=== PATIENT | male | born 1950 | race Caucasian/White ===

== ENCOUNTER 2020-03-17 08:03 | Day surgery (SDC) | payer MEDICARE, OTHER, SELFPAY ==
--- NOTE | 2020-03-16 18:16 | W.PM.HP.N ---
Date of service: 03/17/20 Assessment and Plan Assessment and plan (1) Cortical cataract of right eye: Status: Acute Assessment and plan: Cataract extraction with intraocular lens implant, left eye (2) Cortical cataract of left eye: Status: Acute (3) Nuclear sclerotic cataract of right eye: Status: Acute Assessment and plan: Cataract extraction with intraocular lens implant, left eye (4) Nuclear sclerotic cataract of left eye: Status: Acute Assessment and plan: Plan: Cataract extraction with intraocular lens implant, left eye History of Present Illness History of Present Illness Chief Complaint: Progressive decreases vision both eyes Narrative: The patient is a 69-year-old male who presents with complaints of progressive decreased vision in both eyes at distance. He notes particular anything further than 6 feet away. Night driving is difficult due to glare and halos. He has ongoing floaters, but no flashes. Review of Systems All systems reviewed & are unremarkable except as noted in HPI and below Eyes Eyes: Reports as per HPI FOR[facility]LY [facility] Medical History CAD (coronary artery disease) 18 stents F/U with cardiology 07/28/19 Dr. Mason at [facility] in [place], [place]. Last stent placed 2015 Cataract History of myocardial infarction pt. 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 states he is very active hun[place], states he walks 1 mile everyday, and can lay flat. Social History Smoking/Tobacco Use Status: Former Tobacco Use Quit Date: 06/02/74 Alcohol Intake: current Alcohol Intake frequency: holidays/special occasions only Drug use: Occasionally Substance use type: marijuana Details: edible for insomnia Do you feel safe at home: Yes Do you feel safe in your relationship?: Yes Meds Home Medications and Allergies Home Medications Medication Instructions Recorded Confirmed Type alprazolam 0.5 mg PO DAILY 03/15/20 03/17/20 History aspirin [Aspir-81] 81 mg PO DAILY 03/15/20 03/17/20 History clopidogrel 75 mg PO DAILY 03/15/20 03/17/20 History epinephrine [Epi E-Z Pen] 0.3 mg IM ONCE 03/15/20 03/16/20 History isosorbide mononitrate 60 mg PO DAILY 03/15/20 03/17/20 History lisinopril 2.5 mg PO DAILY 03/15/20 03/17/20 History metoprolol succinate 50 mg PO DAILY 03/15/20 03/17/20 History pravastatin 80 mg PO DAILY 03/15/20 03/17/20 History Allergies Allergy/AdvReac Type Severity Reaction Status Date / Time bee venom protein (honey bee) Allergy Severe Anaphylaxsi Verified 03/16/20 09:44 s hydrocodone [From Vicodin] Allergy Unknown Verified 03/16/20 09:44 Exam Const General: cooperative, healthy appearing and no acute distress Nutritional Appearance: well nourished Orientation: alert and oriented x3 Eyes Visual Haque: normal visual haque by confrontation Alignment and Position: alignment normal Periorbital: periorbital findings normal Eyelids: eyelids normal Conjunctivae: conjunctivae normal Sclera: sclerae normal Cornea: corneas normal Pupils: PERRL EOM: EOM intact bilaterally Other: Stomach examination reveals moderate bilateral nuclear and cortical cataract. Disc cupping of 0.3 OU with normal vessels, macula, peripheral retina and vitreous. Neck Neck: normal visual inspection Chest Chest: normal inspection of the chest Resp Effort & Inspection: normal respiratory effort Cardio Rate: regular rate Rhythm: regular rhythm GI Rectal Exam: deferred Other: Deferred Other: Deferred Back/Spine/Pelvis Other: Deferred Skin Other: Normal Neuro General: patient alert, patient awake and patient oriented x3 Extrem General: normal to inspection Psych Appearance: grossly normal COVID-19 Screening Have you,or household,traveled outside [place] in last 14 days?: No Had IN PERSON contact w/suspected or confirmed C-19 person: No
[2020-03-17 08:35] VITALS: BP 121/72; PULSE 64; RESP 18; TEMP 36.6; O2SAT 98
[2020-03-17] MEDS: Tropicam./Phenyleph. (1/2.5%) 5 ML BTL OS ×3 (08:42→08:47)
[2020-03-17] MEDS: Povidone-Iodine Ophth 30 ML BTL (10:13)
[2020-03-17] MEDS: Lidocaine 2% Jelly 6 ML SYR (10:13)
[2020-03-17] MEDS: Tetracaine 0.5% 4 ML BTL OS (10:18)
[2020-03-17] MEDS: Lidocaine 1% Pres-Free 5 ML VIAL (10:18)
[2020-03-17] MEDS: Balanced Salt Soln.-PLUS 500 ML BAG (10:23)
[2020-03-17] MEDS: Moxifloxacin-PF 1 MG/ML VIAL (10:26)
--- NOTE | 2020-03-17 10:37 | W.PM.DSUDISC ---
Discharge Plan Disposition Patient Disposition: HOME Condition: Good Discharge Details Attending Provider: Ramesh Chapman Primary Care Provider: Jah Russo Home Meds and New Rx's Prescriptions: No Action metoprolol succinate 50 mg Tablet Extended Release 24 Hr 50 mg PO DAILY RF: 0 clopidogrel 75 mg Tablet 75 mg PO DAILY RF: 0 aspirin [Aspir-81] 81 mg Tablet,Delayed Release (Dr/Ec) 81 mg PO DAILY RF: 0 isosorbide mononitrate 60 mg Tablet Extended Release 24 Hr 60 mg PO DAILY RF: 0 alprazolam 0.5 mg Tablet 0.5 mg PO DAILY RF: 0 pravastatin 80 mg Tablet 80 mg PO DAILY RF: 0 epinephrine [Epi E-Z Pen] 0.3 mg/0.3 mL Auto-Injector 0.3 mg IM ONCE RF: 0 lisinopril 2.5 mg Tablet 2.5 mg PO DAILY RF: 0 Discharge Instructions Stand Alone Forms: Post-op Topical Cataract, Aamir Velasquez (DSU) Discharge Orders Discharge Orders: Discharge Order (Routine); Ordered 03/17/20 Ordered By: Ramesh Chapman DS: Diagnosis Discharge Diagnosis (1) Cortical cataract of left eye: Status: Resolved (2) Nuclear sclerotic cataract of left eye: Status: Resolved
--- NOTE | 2020-03-17 10:38 | ROE_ITS ---
Date of service: 03/17/20 Time of Service: 10:38 Operative Note Operative Note DATE OF PROCEDURE: 03/17/20 PRE-OP DIAGNOSIS: Nuclear/cortical cataract, left eye POST-OP DIAGNOSIS: same PROCEDURE: Cataract extraction using phacoemulsification with intraocular lens implant, left eye SURGEON: Ramesh Chapman ANESTHESIA: MAC and local (sub-tenon's anesthetic infiltration) PATHOLOGY: none sent COMPLICATIONS: None Patient was transported to: same day Patient's condition: stable Implants: Carlos A and Carlos A Vision / [employer] Tecnis [id number] Indications: Progressive decreased vision due to cataract, left eye Procedure Description: CATARACT SURGERY OPERATIVE REPORT PREOPERATIVE DIAGNOSIS: Nuclear/cortical cataract, left eye POSTOPERATIVE DIAGNOSIS: Same OPERATION: Cataract extraction using phacoemulsification with posterior chamber intraocular lens implant, left eye. IOL: IOL Call Center Agent/Model: J&J Vision / KANG Tecnis ZCB00 IOL Power: + 23.50 diopters IOL Serial Number: [id number] Optic Diameter: 6.0mm Haptic/Overall Diameter: 13.0mm PHACO INFO: Brad [employer] Vision System with OZil and Active Fluidics Cumulative Dispersed Energy (CDE): 5.11 seconds SURGEON: Ramesh Chapman MD, KAYLEEN ANESTHESIA: Monitored Anesthesia Care (MAC), with local sub-tenon's anesthetic infiltration COMPLICATIONS: None SPECIMENS: None INDICATIONS FOR PROCEDURE: The patient is a 69-year-old gentleman with history of diminished visual acuity in his left eye secondary to the development of nuclear and cortical cataract. The option of cataract surgery was offered to the patient and he felt he was symptomatic enough that he wished to proceed. PROCEDURE: The correct surgical eye was identified and marked as the left eye and the pupil was dilated in the preoperative area using mydriatics and cycloplegics. The dilated pupil size was 7.0 mm. Oral sedation was administered in the form of an Imprimis MKO Melt (midazolam 3mg/ketamine 25mg/ondansetron 2mg). The patient was brought to the operating room where cardiopulmonary eddi toring was instituted and surgical time-out was performed, confirming the correct operative eye and IOL power. Topical anesthesia was administered and ophthalmic povidone-iodine 5% was instilled into the conjunctival fornices. Lidocaine gel was applied to the cornea and the olivia-ocular area was prepped with Betadine 10% solution and draped in the usual sterile fashion for intraocular surgery, including an aperture drape. A Tegaderm transparent film dressing was cut in half and used to cover the lashes and lid margins. Care was taken to sequester the lashes and lid margins under the Tegaderm dressing. A lid speculum was placed between the lids of the operative eye and the Sarina-Cierra operating microscope was maneuvered into position. Daisy scissors were then used to make a conjunctival buttonhole approximately 6mm posterior to the limbus in the inferonasal quadrant. Blunt dissection was carried out to expose bare sclera, and a blunt-tipped sub-tenon?s anesthesia cannula was introduced and passed posteriorly along the globe where non- preserved plain lidocaine was injected into posterior sub-Tenon?s space. A sideport knife was used to make a paracentesis port superior/superiortemporally. Intraocular phenylephrine/lidocaine was injected into the anterior chamber. The anterior chamber was then filled with Healon Pro. A 2.4mm keratome knife was used to create a half-thickness groove at the limbus and then to construct a three-plane near-clear corneal tunnel extending 2.0mm into clear cornea in the temporal position. . A flap was raised on the anterior capsule and capsulorhexis forceps were used to complete a continuous curvilinear capsulorhexis of 5.0 mm. Balanced salt solution was then used to perform cortical cleaving hydrodissection and nuclear hydrodelineation until the lens could be freely rotated within the capsular bag. The lens nucleus was then disassembled and removed within the capsular bag and iris plane using phacoemulsification. Residual cortical material was removed using the 45-degree angled silicone I/A tip with 0.3mm port. The posterior capsule was carefully polished to remove as much residual lens epithelial cells as safely possible. The capsular bag was then inflated and the anterior chamber deepened with viscoelastic. The lens implant described above was inserted into the capsular bag using the KANG [employer] Injector. A Kuglen hook was used to dial the IOL into position. Residual viscoelastic was then removed first from posterior to the IOL, then from the anterior chamber using the I/A handpiece. The lens implant was noted to center nicely within the capsular bag. The incisions were stromally hydrated, and the anterior chamber was reformed using BSS. Then 0.5cc of moxifloxacin 1.0mg/ml were injected into the capsular bag and anterior chamber. The incisions were checked with a Weck spear and found to be secure. Several drops of ophthalmic povidone-iodine 5% were then applied to the eye followed by two drops of Imprimis combination prednisolone/moxifloxacin/nepafenac solution. The drapes were removed and a clear plastic protective eye shield was placed over the eye. The patient was then returned to Same Day Surgery in stable condition.
[2020-03-17 11:01] VITALS: BP 109/57; PULSE 61; RESP 16; TEMP 36; O2SAT 96
== END 2020-03-17 11:12 | disposition home or self-care (01) ==
PROVIDERS: PCP Internal Medicine; Visit Provider Ophthalmology
PROC: (CPT 66984; principal; 2020-03-17 10:30)
DX: H25.12 Age-related nuclear cataract, left eye (principal); H25.012 Cortical age-related cataract, left eye; I10 Essential (primary) hypertension; I25.10 Atherosclerotic heart disease of native coronary artery without angina pectoris
CPT/HCPCS: 66984; NC; V2632

== ENCOUNTER 2020-04-07 06:21 | Day surgery (SDC) | payer MEDICARE, OTHER, SELFPAY ==
[2020-04-07 06:30] VITALS: BP 97/64; PULSE 66; RESP 18; TEMP 36.5; O2SAT 96
[2020-04-07] MEDS: Tropicam./Phenyleph. (1/2.5%) 5 ML BTL OD ×3 (06:35→06:48)
[2020-04-07] MEDS: Balanced Salt Soln.-PLUS 500 ML BAG (07:55)
[2020-04-07] MEDS: Lidocaine 1% Pres-Free 5 ML VIAL (07:56)
[2020-04-07] MEDS: Moxifloxacin-PF 1 MG/ML VIAL (07:57)
[2020-04-07] MEDS: Lidocaine 2% Jelly 6 ML SYR (07:57)
[2020-04-07] MEDS: Povidone-Iodine Ophth 30 ML BTL (07:58)
--- NOTE | 2020-04-07 08:15 | W.PM.DSUDISC ---
Discharge Plan Disposition Patient Disposition: HOME Condition: Good Discharge Details Attending Provider: Ramesh Chapman Primary Care Provider: Jah Russo Home Meds and New Rx's Prescriptions: No Action metoprolol succinate 50 mg Tablet Extended Release 24 Hr 50 mg PO DAILY RF: 0 clopidogrel 75 mg Tablet 75 mg PO DAILY RF: 0 aspirin [Aspir-81] 81 mg Tablet,Delayed Release (Dr/Ec) 81 mg PO DAILY RF: 0 isosorbide mononitrate 60 mg Tablet Extended Release 24 Hr 60 mg PO DAILY RF: 0 alprazolam 0.5 mg Tablet 0.5 mg PO DAILY RF: 0 pravastatin 80 mg Tablet 80 mg PO DAILY RF: 0 epinephrine [Epi E-Z Pen] 0.3 mg/0.3 mL Auto-Injector 0.3 mg IM ONCE RF: 0 lisinopril 2.5 mg Tablet 2.5 mg PO DAILY RF: 0 Discharge Instructions Stand Alone Forms: Post-op Topical Cataract, Aamir Velasquez (DSU) Discharge Orders Discharge Orders: Discharge Order (Routine); Ordered 04/07/20 Ordered By: Ramesh Chapman DS: Diagnosis Discharge Diagnosis (1) Cortical cataract of right eye: Status: Resolved (2) Nuclear sclerotic cataract of right eye: Status: Resolved
--- NOTE | 2020-04-07 08:16 | W.PM.OP ---
Date of service: 04/07/20 Time of Service: 08:16 Operative Note Operative Note DATE OF PROCEDURE: 04/07/20 PRE-OP DIAGNOSIS: Nuclear/cortical cataract, right eye POST-OP DIAGNOSIS: same PROCEDURE: Cataract extraction using phacoemulsification with intraocular lens implant, right eye SURGEON: Ramesh Chapman ANESTHESIA: MAC and local (sub-tenon's anesthetic infiltration) ESTIMATED BLOOD LOSS: 0 PATHOLOGY: none sent COMPLICATIONS: None Patient was transported to: same day Patient's condition: stable Implants: Carlos A and Carlos A Vision / [employer] Tecnis ZCB00 intraocular lens Indications: Progressive decreased vision due to cataract, right eye Procedure Description: CATARACT SURGERY OPERATIVE REPORT PREOPERATIVE DIAGNOSIS: Nuclear/cortical cataract, right eye POSTOPERATIVE DIAGNOSIS: Same OPERATION: Cataract extraction using phacoemulsification with posterior chamber intraocular lens implant, right eye. IOL: IOL Frit Mixer And Burner/Model: J&J Vision / KANG Tecnis ZCB00 IOL Power: + 23.0 diopters IOL Serial Number: [id number] Optic Diameter: 6.0mm Haptic/Overall Diameter: 13.0mm PHACO INFO: Brad QU[employer] (formerly known as [employer])urion Vision System with OZil and Active Fluidics Cumulative Dispersed Energy (CDE): 9.76 seconds SURGEON: Ramesh Chapman MD, KAYLEEN ANESTHESIA: Monitored Anesthesia Care (MAC), with local sub-tenon's anesthetic infiltration COMPLICATIONS: None SPECIMENS: None INDICATIONS FOR PROCEDURE: The patient is a 69-year-old gentleman with history of diminished visual acuity in both eyes secondary to the development of bilateral nuclear and cortical. He has already undergone cataract surgery in his left eye and is doing well postoperatively. Presents for cataract surgery in the right eye. PROCEDURE: The correct surgical eye was identified and marked as the right eye and the pupil was dilated in the preoperative area using mydriatics and cycloplegics. The dilated pupil size was 7.0 mm. Oral sedation was administered in the form of an Imprimis MKO Melt (midazolam 3mg/ketamine 25mg/ondansetron 2mg). The patient was brought to the operating room where cardiopulmonary monitoring was instituted and surgical time-out was performed, confirming the correct operative eye and IOL power. Topical anesthesia was administered and ophthalmic povidone-iodine 5% was instilled into the conjunctival fornices. Lidocaine gel was applied to the cornea and the olivia-ocular area was prepped with Betadine 10% solution and draped in the usual sterile fashion for intraocular surgery, including an aperture drape. A Tegaderm transparent film dressing was cut in half and used to cover the lashes and lid margins. Care was taken to sequester the lashes and lid margins under the Tegaderm dressing. A lid speculum was placed between the lids of the operative eye and the Sarina-Cierra operating microscope was maneuvered into position. Daisy scissors were then used to make a conjunctival buttonhole approximately 6mm posterior to the limbus in the inferonasal quadrant. Blunt dissection was carried out to expose bare sclera, and a blunt-tipped sub-tenon?s anesthesia cannula was introduced and passed posteriorly along the globe where non-preserved plain lidocaine was injected into posterior sub-Tenon?s space. A sideport knife was used to make a paracentesis port inferiortemporally. Intraocular phenylephrine/lidocaine was injected into the anterior chamber. The anterior chamber was then filled with Healon Pro. A 2.4mm keratome knife was used to create a half-thickness groove at the limbus and then to construct a three-plane near-clear corneal tunnel extending 2.0mm into clear cornea in the superiortemporal position. . A flap was raised on the anterior capsule and capsulorhexis forceps were used to complete a continuous curvilinear capsulorhexis of 5.0 mm. Balanced salt solution was then used to perform cortical cleaving hydrodissection and nuclear hydrodelineation until the lens could be freely rotated within the capsular bag. The lens nucleus was then disassembled and removed within the capsular bag and iris plane using phacoemulsification. Residual cortical material was removed using the I/A handpiece. The posterior capsule was carefully polished to remove as much residual lens epithelial cells as safely possible. The capsular bag was then inflated and the anterior chamber deepened with viscoelastic. The lens implant described above was inserted into the capsular bag using the KANG [place] Injector. A Kuglen hook was used to dial the IOL into position. Residual viscoelastic was then removed first from posterior to the IOL, then from the anterior chamber using the I/A handpiece. The lens implant was noted to center nicely within the capsular bag. The incisions were stromally hydrated, and the anterior chamber was reformed using BSS. Then 0.5cc of moxifloxacin 1.0mg/ml were injected into the capsular bag and anterior chamber. The incisions were checked with a Weck spear and found to be secure. Several drops of ophthalmic povidone-iodine 5% were then applied to the eye followed by two drops of Imprimis combination prednisolone/moxifloxacin/nepafenac solution. The drapes were removed and a clear plastic protective eye shield was placed over the eye. The patient was then returned to Same Day Surgery in stable condition.
[2020-04-07 08:37] VITALS: BP 93/56; PULSE 67; RESP 18; TEMP 36.2; O2SAT 97
[2020-04-08] MEDS: Tetracaine 0.5% 4 ML BTL OD (12:58)
== END 2020-04-07 08:53 | disposition home or self-care (01) ==
PROVIDERS: PCP Internal Medicine; Visit Provider Ophthalmology
PROC: (CPT 66984; principal; 2020-04-07 08:30)
DX: H25.11 Age-related nuclear cataract, right eye (principal); I25.10 Atherosclerotic heart disease of native coronary artery without angina pectoris; I10 Essential (primary) hypertension
CPT/HCPCS: 66984; V2632

== ENCOUNTER 2021-10-31 12:24 | Outpatient (CLI) | payer MEDICARE, OTHER, SELFPAY ==
--- NOTE | 2021-10-31 09:30 | DI.RAD_ITS ---
Exam(s) XR SHOULDER LT COMPLETE 2+V EXAM: XR SHOULDER LT COMPLETE 2+V CLINICAL HISTORY: pain for 30 years TECHNIQUE: COMPARISON: CR XR SHOULDER RT COMPLETE 2+V from 10/31/2021 FINDINGS: Two views were obtained. There is moderate narrowing of the cartilaginous joint space of glenohumera l joint with prominent marginal osteophytes of the glenoid particularly inferiorly and mild marginal osteophytes of the humeral head noted. There are mild hypertrophic degenerative changes of the AC tomasa int. IMPRESSION: Degenerative changes predominantly involving glenohumeral joint as described above. RADIATION DOSE DELIVERED: Total DLP
--- NOTE | 2021-10-31 09:30 | DI.RAD_ITS ---
Exam(s) XR SHOULDER RT COMPLETE 2+V EXAM: XR SHOULDER RT COMPLETE 2+V CLINICAL HISTORY: 30 years of pain TECHNIQUE: COMPARISON: No exams were available for comparison FINDINGS: Two views were obtained. There are slight hypertrophic degenerative changes of the acromioclavicular joint. Cartilaginous joint space of glenohumeral joint appears fairly well maintained. Mild margin al osteophytes noted at the glenohumeral joint. No other significant bony or soft tissue abnormality seen. IMPRESSION: Mild degenerative changes as described above. RADIATION DOSE DELIVERED: Total DLP
== END 2021-10-31 12:25 | disposition home or self-care (01) ==
LOC: DIORS 12:25
PROVIDERS: PCP Internal Medicine; Referring Provider Internal Medicine; Visit Provider Physician Assistant Surgical
DX: M75.101 Unspecified rotator cuff tear or rupture of right shoulder, not specified as traumatic (principal)
CPT/HCPCS: 99205; 73030

== ENCOUNTER → 2021-11-15 03:08 | Outpatient (CLI) | payer MEDICARE, OTHER, SELFPAY ==
--- NOTE | 2021-11-15 13:20 | DI.RAD_ITS ---
Exam(s) RF JOINT INJECTION FLUORO GUID EXAM: RF JOINT INJECTION FLUORO GUID CLINICAL HISTORY: L SHOULDER INJ UNDER FLUORO,LT SHOULDER PAIN, M25.512 TECHNIQUE: Fluoroscopy provided. Radiologist not present. CONTRAST MATERIAL: None COMPARISON: No exams were available for comparison FINDINGS: Fluoroscopy was provided for therapeutic left shoulder injection. Submitted image(s) reveal needle placement at the superomedial aspect of the humeral head. Contrast was injected for intra-articular needle verification. Please refer to the procedure report for complete details. Cumulative Dose: Christr=0.341 mGy IMPRESSION: RADIATION DOSE DELIVERED:
[2021-11-15] MEDS: Omnipaque 300 MG/ML 10 ML BTL IJ (14:18)
[2021-11-15] MEDS: Bupivacaine 0.5% Pres-Free 10 ML VIAL 6 ML IJ (14:19)
[2021-11-15] MEDS: methylPREDNISolone ACETATE 80 MG/ML VIAL IM (14:20)
--- NOTE | 2021-11-15 14:27 | W.PROCNOTE ---
Date of service: 11/15/21 Time of Service: 13:15 Procedure Note Date of procedure: 11/15/21 Procedure: Left Shoulder Injection Surgeon/Proceduralist/Physician: Abraham Hampton Procedure Diagnosis: Left Shoulder Arthritis Procedure Indications: Alex has had persistent pain of the LEFT shoulder. Noninvasive measures have been tried. To serve as both diagnostic and therapeutic, an injection under fluoroscopy was recommended. I had discussed the risks of the procedure and the patient elected to proceed. Procedure Description: Alex was greeted in the flouroscopy room. The correct side was identified and the consent was reviewed with the patient and signed. The patient was then placed in the supine position on the fluoroscopy table. The LEFT shoulder was then prepped with Chloraprep. The anterior injection starting point was identiifed by bony landmarks and fluoroscopy. The skin and soft tissue in the tract of the injection was anesthetized with 1% Lidocaine. A spinal needle was then inserted deep into the shoulder joint at the level of the recess between the glenoid and superior humeral head. A small amount of Omnipaque solution was injected to confirm intraarticular placement. Once confirmed, the shoulder was injected with 4cc of 0.5% Bupivicaine and 80mg of Depo-Medrol. A bandaid was placed on the injection site. The patient tolerated the procedure well and noted improvement in pre-injection pain.
== END ==
PROVIDERS: PCP Internal Medicine; Visit Provider Student in an Organized Health Care Education/Training Program
DX: M25.512 Pain in left shoulder (principal)
CPT/HCPCS: 20610; 77002; J1040

== ENCOUNTER → 2021-11-22 02:44 | Outpatient (CLI) | payer MEDICARE, OTHER, SELFPAY ==
--- NOTE | 2021-11-22 07:45 | DI.MRI_ITS ---
Exam(s) MR UPPER JOINT RT WO EXAM: MR UPPER JOINT RT WO CLINICAL HISTORY: PAIN, rt rotator cuff tear, M75.101. TECHNIQUE: Multiplanar multisequence MRI was performed. COMPARISON: Plain films 31 October 2021 FINDINGS: Bones: There is no fracture or contusion pattern. Degenerative subchondral cysts in the superior hum eral head. The acromioclavicular joint shows mild spurring. Spurring at the tip of the acromion.. Glenohumeral joint: There is tiny amount of fluid in the subacromial subdeltoid bursa. No subcoracoi d or glenohumeral joint effusion is present. Rotator Cuff: The supraspinatus tendon shows edema and partial tear. The infraspinatus tendon appears intact.. Th e subscapularis and teres minor are normal. Labrum and biceps anchor: The biceps tendon is located. The anchor is well maintained. The labrum shows degenerative changes.. IMPRESSION: Partial tear of the supraspinatus tendon. Degenerative changes of the glenohumeral joint. DATA REPOSITORY:
== END ==
PROVIDERS: PCP Internal Medicine; Visit Provider Student in an Organized Health Care Education/Training Program
DX: M75.111 Incomplete rotator cuff tear or rupture of right shoulder, not specified as traumatic (principal); M19.011 Primary osteoarthritis, right shoulder; X58.XXXA Exposure to other specified factors, initial encounter
CPT/HCPCS: 73221

== ENCOUNTER → 2021-11-28 07:55 | Outpatient (BNVA) | payer MEDICARE, OTHER, SELFPAY | PROVIDERS: PCP Internal Medicine; Referring Provider Internal Medicine; Visit Provider Student in an Organized Health Care Education/Training Program | DX: M75.101 Unspecified rotator cuff tear or rupture of right shoulder, not specified as traumatic (principal); M19.012 Primary osteoarthritis, left shoulder | CPT/HCPCS: 99214 ==

== ENCOUNTER → 2022-01-30 08:19 | Outpatient (BNVA) | payer MEDICARE, OTHER, SELFPAY | PROVIDERS: PCP Internal Medicine; Referring Provider Internal Medicine; Visit Provider Student in an Organized Health Care Education/Training Program | DX: M19.012 Primary osteoarthritis, left shoulder (principal); M75.101 Unspecified rotator cuff tear or rupture of right shoulder, not specified as traumatic | CPT/HCPCS: 20610; 99214; J1030 ==

== ENCOUNTER 2024-10-14 10:49 | Outpatient (CLI) | payer MEDICARE, OTHER, SELFPAY ==
[2024-10-14 10:40] VITALS: BP 146/106
[2024-10-14 10:57] VITALS: BP 128/59; PULSE 54; RESP 20; TEMP 36.6; O2SAT 99
[2024-10-14 11:15] VITALS: BP 149/92
[2024-10-14 11:25] VITALS: BP 135/72; PULSE 72
--- NOTE | 2024-10-14 11:26 | DI.RAD_ITS ---
Exam(s) XR PAIN CLINIC SACRIOILIAC 2V EXAM: XR PAIN CLINIC SACRIOILIAC 2V CLINICAL HISTORY: DX: Sacroiliac Dysfunction TECHNIQUE: 2D and realtime digital imaging was performed. CONTRAST MATERIAL: Refer to procedure report. COMPARISON: No exams were available for comparison FINDINGS: Fluoroscopy was provided for Dr. Jackson during the performance of a left sacroiliac joint injection. Please refer to the procedure report for complete details. Ka,r=5.26 mGy IMPRESSION: RADIATION DOSE DELIVERED: 0.0 0.0 0
[2024-10-14] MEDS: methylPREDNISolone ACETATE 80 MG/ML VIAL IJ (11:30)
[2024-10-14] MEDS: Omnipaque 240 MG/ML 50 ML BTL IJ (11:30)
[2024-10-14] MEDS: Nerve Block Tray 1 EACH MC (11:31)
--- NOTE | 2024-10-14 14:44 | PDOC.PAIN ---
Date of service: 10/14/24 Time of Service: 11:30 Pain Managment Procedure Note Procedure Note Procedure Note: PROCEDURE NOTE LEFT INTRA-ARTICULAR SACROILIAC JOINT INJECTION Date of Service: October 14, 2024 Patient: Alex Duron Provider: Gildardo Jackson DO, MPH COMMENTS: I previously evaluated the patient in the office and their symptoms in relation to the sacroiliac joint pain have remained the same. Pre-operative diagnosis: Sacroiliac joint dysfunction ICD-10 M53.3 Post-operative diagnosis: Same Pre-procedure pain: VAS= 4/10 Alex Duron has been referred to our [facility] for a Left intra-articular Sacroiliac joint injection. Alex was interviewed and the medical record reviewed. There were no medical, pharmacologic, radiographic or other structural contraindications to attempting a fluoroscopically-guided, contrast-enhanced, intra-articular Sacroiliac joint injection. The risks, benefits, and potential side effects of this procedure were reviewed with the patient. Questions and concerns were addressed. After it was clear that Alex was fully informed about the procedure, the printed consent form was signed by the patient and myself. Alex was placed in the prone position on the fluoroscopy table and an automated blood pressure cuff, 3 lead EKG, and pulse oximeter were applied. The skin entry point for approaching the Left sacroiliac joint was identified under the most advantageous fluoroscopic view and marked. Following thorough Chlorhexadine preparation of the skin and draping with sterile surgical drapes, 2 mls of 1% lidocaine was infiltrated into the skin at the entry point and the surrounding subcutaneous tissues. Next, a 3.5 22G spinal needle was placed under fluoroscopic guidance into the Left sacroiliac joint. Intra-articular placement was confirmed by a clear arthrogram resulting from the injection of 0.25ml of Omnipaque-240. Next, 1 ml of Depo- Medrol 80 mg/ml was injected intra-articularly with an initial reproduction of a significant component of the usual pain. This was followed with 1 ml of 1% Lidocaine. The needle was then removed without difficulty. (49 ml of Omnipaque-240 was wasted). Alex's vital signs were stable throughout the procedure and were as recorded in nursing records. Follow up plans and appointments were discussed with Alex. Post procedure instructions were given as documented in nursing records. Having met discharge criteria, [facility] was [facility] the [facility] COMMENTS: Post-procedure pain: VAS= 2/10. If the patient receives at least 50% improvement in pain and/or function for at least 3 months, this procedure can be repeated if needed. I personally performed this entire procedure. GILDARDO JACKSON DO, MPH ABPMR-subspecialty board certification in Pain Medicine [facility] Coding Conscious Sedation used for procedure: No CPT Codes: SI Joint Inj; incl Fluoro - 27873 ([id number] ~G) Additional Codes: Date of Service (81688) Date of service: 10/14/24
== END 2024-10-14 10:50 | disposition home or self-care (01) ==
LOC: PC 10:50
PROVIDERS: PCP Student in an Organized Health Care Education/Training Program; Visit Provider Preventive Medicine Occupational Medicine
DX: M53.3 Sacrococcygeal disorders, not elsewhere classified (principal)
CPT/HCPCS: 27096; 72200; J1010; Q9967